=== PATIENT | female | born 1990 ===

== ENCOUNTER 2018-06-27 20:15 | Emergency (ER) | payer BC ==
[2018-06-27 20:35] VITALS: BP 104/73; PULSE 89; RESP 20; TEMP 97.9; O2SAT 100
[2018-06-27 21:20] LABS: SQUAMOUS EPITHIAL 2 /hpf (0-5); URINE BACTERIA OCC (<OCC); URINE BILIRUBIN NEGATIVE (NEGATIVE); URINE BLOOD 3+ (NEGATIVE); URINE CLARITY Hazy (Clear); URINE COLOR Red (YELLOW); URINE GLUCOSE (UA) NORMAL (Normal); URINE LEUKOCYTE ESTERASE 2+ Leu/uL (Negative); URINE PROTEIN 1+ mg/dL (NEGATIVE); URINE UROBILINOGEN NORMAL mg/dL (0.2-1.0)
--- NOTE | 2018-06-27 23:04 | C.PDOC ---
History Of Present Illness 27 year old female, with no significant past medical presents to the ED for evaluation of suprapubic abdominal pain and dysuria for 3 days and associated hematuria today. Patient thinks she may have a urinary infection. She reports having a urinary infection one year ago, and states her current symptoms feel similar to prior. Patient states she finished her menstrual cycle yesterday. She denies fever, chills, back pain, nausea, vomiting, dizziness, headache, diarrhea, chest pain and shortness of breath. Time Seen by Provider: 06/27/18 20:40 Chief Complaint (Nursing): Female Genitourinary History Per: Patient History/Exam Limitations: no limitations Onset/Duration Of Symptoms: Days (3) Current Symptoms Are (Timing): Still Present Quality Of Discomfort: "Pain" Associated Symptoms: Urinary Symptoms (dysuria, hematuria ). denies: Fever, Chills, Nausea, Vomiting, Back Pain, Chest Pain Additional History Per: Patient Abnormal Vaginal Bleeding: No Last Menstral Period: finished yesterday Past Medical History Reviewed: Historical Data, Nursing Documentation, Vital Signs Vital Signs: Last Vital Signs Temp 97.9 F 06/27/18 20:29 Pulse 89 06/27/18 20:29 Resp 20 06/27/18 20:29 BP 104/73 06/27/18 20:29 Pulse Ox 100 06/27/18 20:29 - Medical History PMH: No Chronic Diseases Surgical History: No Surg Hx Family History: States: Unknown Family Hx - Social History Hx Alcohol Use: No Hx Substance Use: No - Immunization History Hx Tetanus Toxoid Vaccination: No Hx Influenza Vaccination: No Hx Pneumococcal Vaccination: No Review Of Systems Constitutional: Negative for: Fever, Chills Cardiovascular: Negative for: Chest Pain Respiratory: Negative for: Shortness of Breath Gastrointestinal: Positive for: Abdominal Pain (suprapubic ). Negative for: Nausea, Vomiting Genitourinary: Positive for: Dysuria, Hematuria Neurological: Negative for: Headache, Dizziness Physical Exam - Physical Exam Appears: Non-toxic, No Acute Distress Skin: Normal Color, Warm, Dry Head: Atraumatic, Normacephalic Eye(s): bilateral: Normal Inspection Oral Mucosa: Moist Neck: Supple Chest: Symmetrical, No Deformity, No Tenderness Cardiovascular: Rhythm Regular, No Murmur Respiratory: Normal Breath Sounds, No Rales, No Rhonchi, No Wheezing Gastrointestinal/Abdominal: Soft, Tenderness (mild, suprapubic ), No Guarding, No Rebound Extremity: Normal ROM, Capillary Refill (less than 2 seconds ) Neurological/Psych: Oriented x3, Normal Speech, Normal Cognition ED Course And Treatment - Laboratory Results Lab Results: Urine Color Red (YELLOW) 06/27/18 21:05 Urine Clarity Hazy (Clear) 06/27/18 21:05 Urine pH 7.0 (5.0-8.0) 06/27/18 21:05 Ur Specific [place] 1.002 (1.003-1.030) L 06/27/18 21:05 Urine Protein 1+ mg/dL (NEGATIVE) H 06/27/18 21:05 Urine Glucose (UA) Normal mg/dL (Normal) 06/27/18 21:05 Urine Ketones Negative mg/dL (NEGATIVE) 06/27/18 21:05 Urine Blood 3+ (NEGATIVE) H 06/27/18 21:05 Urine Nitrate Negative (NEGATIVE) 06/27/18 21:05 Urine Bilirubin Negative (NEGATIVE) 06/27/18 21:05 Urine Urobilinogen Normal mg/dL (0.2-1.0) 06/27/18 21:05 Ur Leukocyte Esterase 2+ [place]mer/uL (Negative) H 06/27/18 21:05 Urine WBC (Auto) 49 /hpf (0-5) H 06/27/18 21:05 Urine RBC (Auto) 31 /hpf (0-3) H 06/27/18 21:05 Ur Squamous Epith Cells 2 /hpf (0-5) 06/27/18 21:05 Urine Bacteria Occ (<OCC) H 06/27/18 21:05 O2 Sat by Pulse Oximetry: 100 (on RA) Pulse Ox Interpretation: Normal Medical Decision Making Medical Decision Making: Impression: 27 year old female with suprapubic abdominal pain, dysuria and hematuria Plan: * urinalysis * POC preg * Keflex PO * reassess and disposition Progress: POC negative UA suspicious for UTI, will culture and treat with Keflex empirically Keflex PO given first dose here On reassessment, patient is resting comfortably, showing no signs of distress and is stable for discharge. Patient is advised to follow up with her PMD within 1-2 days for further evaluation. Diagnostic testing results and plan of care discussed with patient. Strict instructions given regarding prescription use, importance of followup, and signs/symptoms to return to ER including fever, chills, back pain, headache, vomiting, or any other new/worsening symptoms. Pt verbalized understanding of discussion. Patient is A&Ox3, ambulating with steady gait, with vital signs stable for discharge. Disposition - Disposition Referrals: [facility] [Outside] Disposition: HOME/ ROUTINE Disposition Time: 21:45 Condition: STABLE Additional Instructions: 1 tab Keflex every 12 hours for 1 week Increase fluids Followup with primary doctor within 2 days Return to ER with any new/worsening symptoms Prescriptions: Cephalexin [Keflex] 500 mg PO Q12 7 Days #14 capsule Instructions: Urinary Tract Infections in Adults Forms: General Discharge Instructions, Work/School/Gym Excuse, [facility] ([place]wana) - Clinical Impression Clinical Impression: UTI (urinary tract infection) - PA / [employer] / Resident Statement MD/DO has reviewed & agrees with the documentation as recorded. - Scribe Statement The provider has reviewed the documentation as recorded by the Scribe (Paris Diggs) All medical record entries made by the Scribe were at my direction and personally dictated by me. I have reviewed the chart and agree that the record accurately reflects my personal performance of the history, physical exam, medical decision making, and the department course for this patient. I have also personally directed, reviewed, and agree with the discharge instructions and disposition.
== END 2018-06-27 22:11 | disposition home or self-care (01) ==
LOC: C.ER 20:15
DX: N39.0 Urinary tract infection, site not specified (principal)